=== PATIENT | female | born 1975 | race Caucasian/White ===

== ENCOUNTER 2025-02-08 10:12 | Emergency (ER) | payer MEDICAID, SELFPAY ==
[2025-02-08 10:21] VITALS: PULSE 110; RESP 16; TEMP 36.8; O2SAT 94; BMI 32.9
--- NOTE | 2025-02-08 10:26 | W.ED.ANIMALB ---
HPI - Animal Bite General: Chief Complaint: Animal Bite Stated Complaint: bug bites all over body Time Seen by Provider: 02/08/25 10:18 Source: patient Mode of arrival: ambulatory Limitations: no limitations History of Present Illness: 49-year-old female states she been staying at her friend's house for the last few days she states she is believes she has had bug bites she has developed a rash to her body it is very pruritic in nature denies any fevers denies any hives denies any shortness of breath. Associated symptoms: Deny chills, fever(s) or headache(s) Related Data Previous Rx's ?Medication ?Instructions ?Recorded permethrin 5 % topical cream 1 applic topical Q14D 2 doses #60 02/08/25 grams Review of Systems Const: Denies: fever(s), chills, body aches or change in appetite ENMT: Denies: throat pain or dental pain Card: Denies: chest pain Resp: Denies: dyspnea GI: Denies: abdominal pain, nausea, vomiting or diarrhea Musc: Denies: neck pain or back pain Skin/Breast: Reports: rash Neuro: Denies: headache(s) Physical Exam Const: COMMON NORMALS: no acute distress, patient oriented x3 and healthy appearing HENMT: COMMON NORMALS: normocephalic and atraumatic HEAD & SCALP: normocephalic and atraumatic Eye: COMMON NORMALS: conjunctivae normal CONJUNCTIVA: Yes conjunctivae normal Neck/C-Spine: COMMON NORMALS: full ROM and supple Resp: COMMON NORMALS: normal respiratory effort Cardio: COMMON NORMALS: regular rate, regular rhythm and No murmurs present (Cardio) RATE: regular rate RHYTHM: regular rhythm Extremity: COMMON NORMALS: normal to inspection and full ROM Neuro: COMMON NORMALS: patient oriented x3, moves all extremities and no focal motor deficits Psych: COMMON NORMALS: mental status grossly normal, Normal thought process present and cooperative THOUGHT PROCESS: Normal thought process present Skin: COMMON NORMALS: no wounds NARRATIVE SKIN EXAM: Rash to her body appearance of bug bites or scabies Course Vital Signs: Vital signs: Vital Signs Temperature 98.2 F 02/08/25 10:21 Pulse Rate 110 H 02/08/25 10:21 Respiratory Rate 16 02/08/25 10:21 Pulse Oximetry 94 02/08/25 10:21 Oxygen Delivery Me thod Room Air 02/08/25 10:21 MDM - Animal Bite Medical Decision Making Patient presents with a rash for likely bug bite to her scabies we will give her dose steroid here will place her on permethrin cream Medical Records I reviewed the patient's medical records. All radiology interpretation(s) finalized by discharge Discharge Plan Discharge Patient Disposition: Home Clinical Impression: Rash Condition: Stable Prescriptions: New permethrin 5 % cream 1 applic topical Q14D Qty: 60 0RF Rx Instructions: apply second treatment 14 days after first treatment if live lice remain Discharge Orders: Discharge ED (Routine); Ordered 02/08/25 Ordered By: Eliot Urias Discharge Diet: Advance as tolerated Discharge Activity: Resume usual activity Patient Instructions: Acute Rash (ED) Print Language: Korean Coding Level of Care Code ED Credit Analysis Manager for Joby Rivera
[2025-02-08] MEDS: triamcinolone 40 mg/mL SDV 80 MG IM (10:32)
[2025-02-08] MEDS: dexamethasone 10 mg/mL INJ IM (10:35)
[2025-02-08 10:39] VITALS: BP 138/88; PULSE 102; O2SAT 93
[2025-02-08 11:02] VITALS: BP 151/82; PULSE 103; O2SAT 96
== END 2025-02-08 11:00 | disposition home or self-care (01) ==
PROVIDERS: Emergency Provider Emergency Medicine
DX: R21 Rash and other nonspecific skin eruption (principal)
CPT/HCPCS: 96372; 99284; J1100; J3301